=== PATIENT | female | born 1945 | race American Indian/Alaskan Native ===

== ENCOUNTER 2017-06-13 08:05 | Day surgery (SDC) | payer MEDICARE, OTHER ==
[~2017-06-13] VITALS: Ht 154.9 cm; Wt 52.2 kg
[~2017-06-13 08:05] MED LIST: ACETAMINOPHEN325 M1 PO; AMITRIPTYLINE H10 MG PO; AMITRIPTYLINE H25 MG PO; AMLODIPINE BESY10 MG PO; ASCORBIC ACID500 M3 PO; ASPIRIN EC81 MG PO; CALCIUM + D SO1 EACH PO; FERROUS SULFAT325 MG PO; HYDROCODON-ACE1 EAC3 PO; HYDROCODON-ACE1 EAC8 PO; LISINOPRIL40 MG PO; METHOCARBAMOL500 MG PO; MULTIVITAMINS1 EAC7; MULTIVITAMINS1 EAC7 PO; OXYCODONE HCL15 MG PO; POLYETHYLENE GL17 GM PO; SENNA8.6 MG PO; SIMVASTATIN10 MG; TOPROL XL100 MG PO; TRIAMTERENE-HC1 EAC1 PO
--- NOTE | 2017-06-13 10:21 | NUR ---
06/13/17 1021 Gaye Sanchez 1015-PATIENT ARRIVED TO PACU ON 3L NC O2 SAT 95% PATIENT COUGHING SUCTIONED CLEAR SPUTUM. EYES CLOSED. SR. 1021-PATIENT OPENING EYES DENIES PAIN.
--- NOTE | 2017-06-14 06:21 | OR ---
[facility] [address], [place] [address] Signed DATE OF OPERATION: 06/13/2017 SURGEON: Hayley Rm MD PREOPERATIVE DIAGNOSES: 1. Hiatal hernia. 2. Recurrent distal esophageal stricture. 3. History of esophageal dilation in 2011 and 2015. POSTOPERATIVE DIAGNOSES: 1. Moderate sized type 1 hiatal hernia (32-38 cm). 2. Distal esophageal stricture at 32 cm. PROCEDURES: EGD with CLOtest and distal esophageal dilation with 18 mm/54-[place]izen [place] balloon dilator. ESTIMATED BLOOD LOSS: Minimal. INDICATIONS: Salina is a 71-year-old female, who I have known previously. She has actually been through extensive vascular surgery at [facility]. I found her with a small hiatal hernia and a short distal esophageal stricture, which we dilated in 2011. We used our 18 mm balloon. We again dilated her in May 2015 with our 18 mm balloon. She is referred back to the office now feeling that food is getting stuck once again in her distal esophagus. Consequently, we made plans to repeat her dilation. I reviewed with Salina the nature of the hiatal hernia and the stricture. We talked about ongoing dilation versus surgical repair including dilation followed by fundoplication at the same setting. She reminded me of her extensive surgery at [facility]. She is aware of Dr. Shawn Winkler, who is an expert in foregut surgery. She thought that might be a good idea and she wanted to talk to me more about it in due time. I gave Salina a booklet on hiatal hernias and acid reflux. We reviewed the upper endoscopy in detail along with the dilation. Because of her extensive past medical history and her need for daily narcotics, we always have an anesthesia provider help us with increased monitoring sedation for Salina. In addition, she understands there is risk including but not limited to, gas bloating, crampy abdominal pain, bleeding, perforation, requiring surgery, and missed diagnosis. She expressed understanding and wished to proceed. PROCEDURE NOTE: Electronically Signed By: HAYLEY RM MD 06/14/17 0621 PATIENT NAME: SALINA MENDOZA OPERATIVE REPORT DATE OF : 47 PHYSICIAN: HAYLEY RM MD REPORT #: [id number] REPORT IS CONFIDENTIAL AND NOT TO BE RELEASED WITHOUT AUTHORIZATION [facility] [address] [place] [id number] Signed Salina was taken into our endoscopy suite and placed in the supine semi-recumbent position. She was placed under monitored anesthesia care with propofol per our nurse diversified crops supervisor. Her dentures were removed. The adult gastroscope was introduced and advanced easily down the esophagus until we reached her stricture at 32 cm. The adult gastroscope would not pass through the stricture. Consequently, we passed our balloon dilator and across the stricture and we inflated it, and held in place for a full minute. The balloon was let down, repositioned, and we inflated the stricture once again for a full minute. At that point, the fully inflated balloon could easily pass to and fro through the stricture. We then deflated our balloon and removed the balloon completely. The adult gastroscope was reintroduced and passed down the esophagus through the stricture and I could see the 3 areas of mucosa that were fractured for the dilation. We went through her hiatal hernia and we found the diaphragmatic crura at 38 cm, making a total length of her hiatal hernia 6 cm. The scope was then passed through the stomach out into the duodenum itself. The duodenum and pyloric channel were unremarkable. Her stomach appears very healthy. We went ahead and took the just a single biopsy from antrum for CLOtest. Upon retroflexion of the scope, we could easily see her hiatal hernia. Again, we measured out the diaphragmatic crura at 38 cm and then back to the top of the hiatal hernia with the stricture at 32 cm, making the total length 6 cm from the hiatal hernia. The middle and upper esophagus were unremarkable. I saw no evidence of any Mckeon's mucosa or distal esophagitis associated with the stricture. After this, the gas was suctioned out and the gastroscope removed. Salina tolerated the procedure quite well. RECOMMENDATIONS: I will see Salina back in my office in 7 to 14 days to review her results and review the pictures with her. She also wants to review possible surgical options. Hayley Rm MD ALB/MODL /[id number] cc: Kristopher David MD Electronically Signed By: HAYLEY RM MD 06/14/17 0621 PATIENT NAME: SALINA MENDOZA OPERATIVE REPORT DATE OF : 47 PHYSICIAN: HAYLEY RM MD REPORT #: [id number] REPORT IS CONFIDENTIAL AND NOT TO BE RELEASED WITHOUT AUTHORIZATION
== END 2017-06-13 18:00 | disposition home or self-care (01) ==
LOC: OPS 08:05 → DS 08:05 → OPS 09:15
PROVIDERS: Colon & Rectal Surgery
PROC: 0DB68ZX Excision of Stomach, Via Natural or Artificial Opening Endoscopic, Diagnostic (ICD-10-PCS; 2017-06-13)
PROC: 0D738ZZ Dilation of Lower Esophagus, Via Natural or Artificial Opening Endoscopic (ICD-10-PCS; principal; 2017-06-13 09:45)
DX: K22.2 Esophageal obstruction (principal); K44.9 Diaphragmatic hernia without obstruction or gangrene; I10 Essential (primary) hypertension; I73.9 Peripheral vascular disease, unspecified; K21.9 Gastro-esophageal reflux disease without esophagitis; E11.9 Type 2 diabetes mellitus without complications; D64.9 Anemia, unspecified; F41.9 Anxiety disorder, unspecified; M81.0 Age-related osteoporosis without current pathological fracture; M86.8X7 Other osteomyelitis, ankle and foot; G89.29 Other chronic pain; M25.551 Pain in right hip; I71.6 Thoracoabdominal aortic aneurysm, without rupture; Z86.19 Personal history of other infectious and parasitic diseases; Z90.89 Acquired absence of other organs; Z98.890 Other specified postprocedural states; Z86.718 Personal history of other venous thrombosis and embolism; Z90.49 Acquired absence of other specified parts of digestive tract; Z88.2 Allergy status to sulfonamides; Z79.899 Other long term (current) drug therapy
CPT/HCPCS: 86677; 99156; 99157; C1726; J2704; J7120

== ENCOUNTER 2024-07-17 05:36 | Emergency (ER) | payer MEDICARE, OTHER ==
[~2024-07-17] VITALS: Ht 157.5 cm; Wt 62.6 kg
[~2024-07-17 05:36] MED LIST changes: +CARAFATE1 GM PO; +CLARITIN10 M2 PO; +FLONASE ALLERG9.9 ML NAS; +PROTONIX40 MG PO; +REGLAN10 MG PO
[2024-07-17] MEDS ORDERED: MORPHINE SULFATE 4 MG/ML VIAL IV ONE (06:00)
[2024-07-17] MEDS ORDERED: ondansetron HCL 4 MG/2 ML VIAL IV ONE (06:00)
[2024-07-17] MEDS ORDERED: SODIUM CHLORIDE 0.9% 500 ML IV PRN (06:15)
[2024-07-17] MEDS ORDERED: SODIUM CHLORIDE 0.9% 500 ML IV ONE (06:15)
[2024-07-17 06:34] LABS: HEMATOCRIT 33.8 % (35.0-50.0); HEMOGLOBIN 10.9 g/dL (12.0-18.0); MCH 26.4 (27-36); MCHC 32.2 g/dl (30-36); MCV 81.9 fl (81-99); PLATELET COUNT 334 K/uL (140-440); RBC 4.12 M/ul (4.3-5.7); RDW 21.7 (10.5-15.0)
[2024-07-17 06:37] LABS: INR 1.15 (0.80-1.30); PROTIME 14.6 Sec (11.2-14.2)
[2024-07-17 06:42] LABS: ALBUMIN 2.8 g/dL (3.4-5.0); ALBUMIN/GLOBULIN RATIO 0.68 (1.1-2.4); ANION GAP 26.3 (7-21); BILIRUBIN, TOTAL 0.5 mg/dL (0.2-1.0); BUN/CREATININE RATIO 13.75 (6.0-28.6); CALCIUM 8.4 mg/dL (8.5-10.1); CREATININE, SERUM 2.4 mg/dL (0.55-1.02); POTASSIUM 3.3 mmol/L (3.5-5.1); PROTEIN, TOTAL 6.9 g/dL (6.4-8.2)
[2024-07-17 06:57] LABS: BANDS, MANUAL DIFF 1; LYMPHOCYTES, MANUAL DIFF 29; MONOCYTES, MANUAL DIFF 1; NEUTROPHILS, MANUAL DIFF 69
[2024-07-17] MEDS ORDERED: VOLTAREN ARTHRI20 GM TD (08:39)
[2024-07-17] MEDS ORDERED: ONDANSETRON ODT8 MG PO (08:39)
[2024-07-17] MEDS ORDERED: LIDODERM1 EACH TOP (08:39)
[2024-07-17] MEDS ORDERED: OXYCODONE HCL5 MG PO (08:39)
[2024-07-17] MEDS ORDERED: OXYCODONE HCL 5 MG TAB PO ONE (08:45)
[2024-07-17 09:20] VITALS: BP 125/56
== END 2024-07-17 09:20 | disposition home or self-care (01) ==
LOC: ED 05:36
PROVIDERS: Family Medicine
DX: R10.9 Unspecified abdominal pain (principal); W18.2XXA Fall in (into) shower or empty bathtub, initial encounter; I10 Essential (primary) hypertension; Z88.2 Allergy status to sulfonamides; Z88.0 Allergy status to penicillin; Z88.1 Allergy status to other antibiotic agents; Z88.8 Allergy status to other drugs, medicaments and biological substances; Z79.899 Other long term (current) drug therapy
CPT/HCPCS: 36415; 74176; 80053; 83690; 85025; 85610; 96374; 96375; 99284-25; A9270; J2270; J2405; J7040

== ENCOUNTER 2024-12-16 15:27 | Inpatient (IN) | payer MEDICARE, OTHER ==
[~2024-12-16] VITALS: Ht 157.5 cm; Wt 47.5 kg
[~2024-12-16 15:27] MED LIST changes: +LIDODERM1 EACH TOP; +ONDANSETRON ODT8 MG PO; +OXYCODONE HCL5 MG PO; +VOLTAREN ARTHRI20 GM TD
[2024-12-16] MEDS ORDERED: SODIUM CHLORIDE 0.9% 1,000 ML IV PRN (16:00)
[2024-12-16 16:17] LABS: BLOOD/HGB, URINE LARGE (Negative); KETONE, URINE SMALL (Negative); LEUK ESTERASE, URINE MODERATE (negative); NITRITE, URINE NEGATIVE (negative)
[2024-12-16 16:24] LABS: BACTERIA, URINE 4+ /hpf (negative); CASTS, URINE NONE SEEN \\lpf; CRYSTALS, URINE NONE SEEN (0-1+); EPITHELIAL CELLS, URINE NONE SEEN /lpf (0-1+)
[2024-12-16 16:25] LABS: REFLEX CULTURE, URINE Yes (No)
[2024-12-16 17:14] LABS: BASOPHILS 0 % (0.1-1.2); EOSINOPHILS 0.1 % (0.7-5.8); LYMPHOCYTES 3.1 % (19.3-51.7); MCH 32.4 PG (25.6-32.2); MCHC 36.4 g/dL (32.2-35.5); MCV 89.1 fL (79.4-94.8); MONOCYTES 2.6 % (4.7-12.5); NEUTROPHILS 94.0 % (34.0-71.1); RBC 3.58 M/uL (3.93-5.22)
[2024-12-16 17:29] LABS: ALT (SGPT) 20.0 U/L (14-59); AST (SGOT) 51.0 U/L (15-37); GLOMERULAR FILTRATION RATE,EST 35.0 mL/min (>60); PROTEIN, TOTAL 6.3 g/dL (6.4-8.2); UREA NITROGEN 39.0 mg/dL (7-18)
[2024-12-16] MEDS ORDERED: POTASSIUM CHLORIDE 20 MEQ/15 ML CUP PO ONE (19:15)
[2024-12-16] MEDS ORDERED: POTASSIUM CHLORIDE 10 MEQ/100 ML BAG IV SCH ×2 (19:15→23:45)
[2024-12-16] MEDS ORDERED: SODIUM CHLORIDE 0.9% 1,000 ML IV SCH (20:00)
[2024-12-16] MEDS ORDERED: ACETAMINOPHEN 325 MG TAB PO PRN (20:00)
--- NOTE | 2024-12-16 21:16 | NUR ---
RECEIVED PHONE CALL FROM RN LAURA-STEREO MAP PLOTTER OPERATOR. PER SUP, AWAITING IV ACCESS FROM MD BEFORE pt TO TRANSFER TO MS FLOOR. RECEIVING PRIMARY RN AWARE.
--- NOTE | 2024-12-16 22:25 | NUR ---
pt ARRIVED TO MS FLOOR VIA STRETCHER WITH PRIMARY RN ISAI. pt TRANSFERRED VIA TRANSFER SHEET, 3PA. RN FABIAN ALSO IN ROOM. ADMISSION COMPLETED, VSS. pt ON RA, RR EVEN AND UNLABORED. PRIMARY RN REMAINS IN ROOM TO COMPLETE pt CARES, CALL LIGHT IN REACH. PER pt, DAUGHTER MAGALY TOOK pt PURSE/BELONGINGS HOME WITH HER. pt DOES REPORT SHE HAS PARTIALS IN PLACE. BED ALARM ON FOR SAFETY. pt SO-SO HISTORIAN, UNSURE OF EXACT DATES/DETIALS WHEN ASKED REGARDING HISTORY.
--- NOTE | 2024-12-16 22:40 | NUR ---
RECEIVED CALL FROM BRIAN SANCHEZENGRAVER OPTICAL FRAMES, STATING OK TO USE NEW CENTRAL LINE PER MD.
[2024-12-16 22:55] VITALS: BP 132/67
--- NOTE | 2024-12-16 23:49 | NUR ---
ADMINISTERED IV POTASSIUM. REFRESHED WATER. REPOSITIONED WITH PILLOWS ON SIDE. NO OTHER NEEDS, CALL LIGHT IN REACH
--- NOTE | 2024-12-16 23:59 | NUR ---
PICTURES TAKEN OF SACRAL WOUND, CONSENT IN CHART. ADMINISTERED IV POTASSIUM THROUGH CENTRAL LINE. PROVIDED ICE WATER. POSITIONED TO L SIDE WITH PILLOWS. NO OTHER NEEDS, CALL LIGHT IN REACH
[2024-12-17] VITALS (9 sets, daily range): BP systolic 116–143; BP diastolic 65–75
--- NOTE | 2024-12-17 00:02 | NUR ---
STARTED IV POTASSIUM PER ORDER. POSITIONED PT ON L SIDE WITH PILLOWS. REFRESHED ICE WATER. NO OTHER NEEDS, CALL LIGHT IN REACH
--- NOTE | 2024-12-17 01:33 | NUR ---
PT RESTING IN BED, EYES CLOSED, RISE AND FALL OF CHEST OBSERVED. CALL LIGHT IN REACH
--- NOTE | 2024-12-17 02:13 | NUR ---
VITALS, REPOSITIONED PT. FINISHED IV POTASSIUM. NO OTHER NEEDS, CALL LGT IN REACH
--- NOTE | 2024-12-17 03:21 | NUR ---
PT RESTING IN BED WITH EYES CLOSED, RISE AND FALL OF CHEST OBSERVED. CALL LIGHT IN REACH, BED ALARM ACTIVE
[2024-12-17 05:03] LABS: BASOPHILS 0.2 % (0.1-1.2); EOSINOPHILS 0.3 % (0.7-5.8); LYMPHOCYTES 6.8 % (19.3-51.7); MCH 32.3 PG (25.6-32.2); MCHC 36.3 g/dL (32.2-35.5); MCV 89.1 fL (79.4-94.8); MONOCYTES 4.4 % (4.7-12.5); NEUTROPHILS 88.0 % (34.0-71.1); RBC 3.03 M/uL (3.93-5.22)
[2024-12-17 05:13] LABS: SMEAR REVIEW BLOOD SEE COMMENTS
--- NOTE | 2024-12-17 05:16 | NUR ---
VITALS, REPOSITIONED WITH PILLOWS. JASMIN AM LABS. GIVEN PRN TYLENOL FOR R ANKLE PAIN. REFRESHED ICE WATER, CALL LIGHT IN REACH, BED ALARM ACTIVE
[2024-12-17 05:18] LABS: ALT (SGPT) 19.0 U/L (14-59); AST (SGOT) 36.0 U/L (15-37); GLOMERULAR FILTRATION RATE,EST 45.0 mL/min (>60); PHOSPHORUS, INORGANIC 2.0 mg/dL (2.5-4.9); PROTEIN, TOTAL 5.3 g/dL (6.4-8.2); UREA NITROGEN 30.0 mg/dL (7-18)
--- NOTE | 2024-12-17 05:48 | NUR ---
LAB RESULTED BLOOD GLUCOSE OF 61. PERFORMED POC BLOOD GLUCOSE, RESULTED 49. GIVEN 240ML OF APPLE JUICE AND A GRANOLA BAR. PLAN TO RECHECK AT 0600.
--- NOTE | 2024-12-17 06:17 | NUR ---
SECONDARY REGULAR DIET-MINCED AND MOIST ADDED FOR pt EASE OF SWALLOWING PER PRIMARY RN REQUEST.
[2024-12-17] MEDS ORDERED: IBLOOD GLUCOSE TEST STRIP 1 EA TEST XX PRN (06:30)
[2024-12-17] MEDS ORDERED: DEXTROSE 5% 1,000 ML IV PRN (06:30)
[2024-12-17] MEDS ORDERED: GLUCAGON,HUMAN RECOMBINANT 1 MG/ML VIAL SUB-Q PRN (06:30)
[2024-12-17] MEDS ORDERED: DEXTROSE 50% 50 ML SYR IV PRN ×2 (06:30)
[2024-12-17] MEDS ORDERED: DEXTROSE 5% - NACL 0.9% 1,000 ML IV SCH (06:30)
[2024-12-17] MEDS ORDERED: MAGNESIUM SULFATE 2 GM/50 ML BAG IV SCH (07:45)
[2024-12-17] MEDS ORDERED: POTASSIUM PHOSPHATE 30 MMOL in DEXTROSE 5% 500 ML IV ONE (07:45)
[2024-12-17] MEDS ORDERED: MULTIVITAMINS THERAPEUTIC 1 EA TAB PO SCH (08:00)
[2024-12-17] MEDS ORDERED: FOLIC ACID 1 MG/0.2 ML ML IV SCH (08:00)
[2024-12-17] MEDS ORDERED: THIAMINE HCL 200 MG/2 ML VIAL IV SCH (08:00)
--- NOTE | 2024-12-17 08:14 | NUR ---
PATIENT REMAINS ON ROOM AIR, 96-98%. PATIENT DENIES OTHER NEEDS.
[2024-12-17] MEDS ORDERED: ENOXAPARIN SODIUM 40 MG/0.4 ML SYR SUB-Q SCH (09:00)
[2024-12-17] MEDS ORDERED: ENOXAPARIN SODIUM 30 MG/0.3 ML SYR SUB-Q SCH (09:00)
--- NOTE | 2024-12-17 09:05 | NUR ---
PATIENT WAS GOING TO A X-RAY AND COLORER ASSISTED IN CLEANING PATIENT UP AND TO HER CHAIR. I STRIPPED HER BEDDING, CHANGED THE SHEETS, CLEANED HER ROOM, THEN WHEN THE PATIENT GOT BACK I ASSISTED HER BACK TO BED. ATE BREAKFAST WHILE I SET UP EVERYTHING FOR A BED BATH, GOT PATIENT CLEANED UP AND A NEW GOWN PUT ON. STOCKED THINGS IN THE CLOSET AND PUT DIRTY LINENS IN THE BIN. CALL LIGHT WITH IN REACH AND NOTHING ELSE NEEDED AT THIS TIME.
[2024-12-17] MEDS ORDERED: SODIUM CHLORIDE 0.9% 1,000 ML IV SCH (10:00)
--- NOTE | 2024-12-17 10:04 | NUR ---
PT NOT AVAILABLE FOR VISIT. PROVIDED PRAYER.
--- NOTE | 2024-12-17 10:45 | NUR ---
PT CURRENTLY WORKING WITH PHYSICAL THERAPY AT THIS TIME, PT IS STANDING AND AMBULATING FROM BED TO CHAIR 1PA W FWW. PT TOLERATING WELL AND HAS CHAIR ALARM ON FOR PT SAFETY AND CALL LIGHT IN REACH AT THIS TIME IF NEEDED.
--- NOTE | 2024-12-17 10:54 | NUR ---
UR CLINICAL REVIEW: 2 MN FOR VERSALUS-PER FORENSIC BALLISTICS EXPERT MEETS INPT CRITERIA FOR UTI WITH ALOC AND HYPOKALEMIA MEDICARE INPT 12/16/24 @ 195 ORDER MATCHES REG NO AUTH REQUIRED PER MEDICARE GUIDELINES DISCHARGE TO HOME IN 1-2 DAYS PENDING FUTHER EVAL
--- NOTE | 2024-12-17 11:05 | NUR ---
ALERT IN RECLINER. ANSWERS QUESTIONS APPROPRIATELY BUT DOES HAVE DIFFICULTY WITH SOME MEMORY NOTED. LIVES ALONE IN AN APARTMENT. HAS WALKER, CANE. UNSURE IF SHE HAS OTHER MEDICAL EQUIPMENT. PATIENT DOES NOT DRIVE. FAMILY PROVIDES TRANSPORTATION FOR HER. STATES SHE HAS NO FINANCIAL HARDSHIP. DISCUSSED THAT PT IS RECOMMENDING SNF. STATES SHE WOULD PREFER TO STAY IN [place], IS AGREEABLET TO SNF AT THIS TIME. REQUESTS CASE MANAGEMENT CALL AND UPDATE HER DAUGHTER, MAGALY.
--- NOTE | 2024-12-17 11:57 | NUR ---
CALLED AND SPOKE WITH MAGALY. STATES PATIENT HAS PREVIOUSLY BEEN TO [facility] AND SHE IS SURPRISED PATIENT IS IN AGREEANCE TO RETURN. MAGALY REQUESTS REFERRAL BE SENT TO [facility] SHE IS PLANNING ON HELPING PATIENT WITH PLACEMENT IN FACILITY AFTER SNF. PREFERRABLY DESIRE TO HEAL IF POSSIBLE. STATES SHE THINKS PATIENT WILL HAVE ASSISTANCE WITH PLACEMENT FEES THROUGH [employer] AND STATES MORNING NANNY THERE IS DICK CAMPOS. ALSO STATES SHE THINKS PATIENT HAS ASSISTED MEDICAID.
[2024-12-17] MEDS ORDERED: PHARMACY RENAL DOSE ADJUSTMENT 1 DOSE MISC PO SCH (12:00)
--- NOTE | 2024-12-17 12:08 | NUR ---
CALLED AND SPOKE WITH NESTOR ALVARADO AT [facility]. PATIENT DOES NOT HAVE IMMIGRATION OFFICER MEDICAID. HER SON WENT IN TO OFFICE LAST WEEK TO INQUIRE ABOUT PRISON MEDICAID, HOWEVER PATIENT WASN'T PRESENT SO THEY WERE NOT ABLE TO INITIATE APPLICATION PROCESS.
--- NOTE | 2024-12-17 12:11 | NUR ---
PT SITTING UP IN CHAIR AT THIS TIME WITH CHAIR ALARM IN PLACE FOR PT SAFETY AT THIS TIME. PT HAS NO CURRENT CONCERNS AND HAS CALL LIGHT IN REACH.
--- NOTE | 2024-12-17 13:27 | NUR ---
PATIENT IS IN HER CHAIR AT THIS TIME, SENIOR SOLUTIONS CONSULTANT CHARTED VITALS AND I&O'S, CLEANED UP HER ROOM AND MADE HER BED. PATIENT HAS NOT VOIDED SINCE THIS MORNING, YAMEL CARRERA NOTIFIED. CALL LIGHT WITH IN REACH AND NOTHING ELSE NEEDED AT THIS TIME.
--- NOTE | 2024-12-17 13:40 | NUR ---
REPORT RECIEVED FROM YAMEL CARRERA. PATIENT SITTING UP IN HER CHAIR WITHOUT FURTHER NEEDS AT THIS TIME. CALL LIGHT AND PERSONAL BELONGINGS ARE WITHIN REACH.
--- NOTE | 2024-12-17 13:53 | NUR ---
REFERRAL SENT TO [facility] FOR [facility]F.
--- NOTE | 2024-12-17 13:57 | NUR ---
PATIENT CBG PER DR NEWMAN AND WAS 273. VERBAL ORDER FROM MD TO RECHECK PATIENT CBG IN 1 HOUR.
--- NOTE | 2024-12-17 15:10 | NUR ---
PATIENT CBG CHECKED AND WAS 246. DR NEWMAN NOTIFIED. MD WITH VERBAL ORDER TO RECHECK PATIENT'S CBG "AROUND DINNER TIME".
--- NOTE | 2024-12-17 15:51 | NUR ---
PATIENT WAS IN HER CHAIR AND YAMEL SOMMERS ASSISTED HER BACK TO BED, I CAME IN AND WAS ASSISTING IN CHANGING THE PATIENT, PATIENTS BOTTOM AND VAGINAL AREA WAS VERY RED, BLOODY AND IRRITATED. WE CLEANED HER UP AND YAMEL MCGREGOR CAME IN AND ASSISTED IN PUTTING CAVILON ON PATIENT TO HELP. CHANGED HER BREIF AND CHUCKS, WARM BLANKET AND FRESH ICE WATER. CALL LIGHT WITH IN REACH AND NOTHING ELSE NEEDED AT THIS TIME.
--- NOTE | 2024-12-17 15:57 | NUR ---
PATIENT CBG PER DR NEWMAN AND WAS 273. VERBAL ORDER FROM MD TO RECHECK PATIENT CBG IN 1 HOUR.
--- NOTE | 2024-12-17 15:58 | NUR ---
PATIENT RESTING IN BED, GUMARO AREA CLEANED WITH WIPES AND CAVILON BARRIER FILM APPLIED TO PATIENTS BUTTOCKS AND LABIA FOLDS. PATIENT TOLERATED OKAY, BUT REPORTED IT BEING PAINFUL. PATIENT GIVEN PRN TYLENOL FOR 8/10 PAIN IN "MY FEET AND BUTT". PATIENT WITHOUT FURTHER NEEDS AT THIS TIME. CALL LIGHT AND PERSONAL BELONGINGS ARE WITHIN REACH.
--- NOTE | 2024-12-17 16:30 | NUR ---
PATIENT RESTING IN BED WITH HER EYES CLOSED. EVEN AND UNLABORED RESPIRATIONS NOTED. CALL LIGHT AND PERSONAL BELONGINGS ARE WITHIN REACH.
--- NOTE | 2024-12-17 17:16 | NUR ---
PATIENT'S CBG CHECKED AND WAS 220. DR NEWMAN NOTIFIED. MD WITH NO FURTHER ORDERS AT THIS TIME. PATIENT SITTING UP IN BED WITHOUT ANY NEEDS. CALL LIGHT AND PERSONAL BELONGINGS ARE WITHIN REACH.
--- NOTE | 2024-12-17 17:45 | NUR ---
PATIENT RESTING IN BED, DENIES ANY PAIN AT THIS TIME. PATIENT WITHOUT ANY NEEDS. CALL LIGHT AND PERSONAL BELONGINGS ARE WITHIN REACH.
--- NOTE | 2024-12-17 17:59 | NUR ---
PATIENT IS IN HER BED AT THIS TIME, FOOT GATHERER CHARTED VITALS AND I&O'S, THE MONITOR WILL NOT AIRPLANE GAS TANK LINER ASSEMBLER HER O2, ON THE WALL MONISTOR OR THE SMALL PORTABLE PULSE OX. I CALLED DOWN TO RT AND ASKED FOR AN EAR OR NOSE CLIP PULSE OX, BUT IT IS STILL NOT HERE YET. CALL LIGHT WITH IN REACH AND NOTHING ELSE NEEDED AT THIS TIME.
--- NOTE | 2024-12-17 20:30 | NUR ---
PERFUME AND TOILET WATER MAKER OBTAINED VITALS. NO NEW I&O AT THIS TIME. PT STATES NO NEEDS AND CALL LIGHT WITHIN REACH.
--- NOTE | 2024-12-17 20:55 | NUR ---
PATIENT IN BED, EYES OPEN, CHEST RISE EQUAL AND UNLABORED. PATIENT DENIES CONCERNS AT THIS TIME. CALL LIGHT AND PERSONAL BELONGINGS IN REACH.
--- NOTE | 2024-12-17 21:50 | NUR ---
PATIENT LAYING IN BED, EYES OPEN, CHEST RISE EQUAL AND UNALBORED. SCHEDULED MESIDATIONS AND ASSESSMENT COMPLETE. GUMARO CARE COMPLETED AND FEMAL PUREWICK PLACED, PATIENT TOLERATED WELL. PATIENT DENIES CONCERNS AT THIS TIME. BED ALARM ON, PERSONAL BELONGINGS IN REACH AND CALL LIGHT IN REACH
--- NOTE | 2024-12-17 22:33 | NUR ---
PATIENT IN BED, EYES CLOSED, CHEST RISE EQUAL AND UNLABORED. IV FLUID INFUSING WITHOUT DIFFICULTY. NO APPARENT NEEDS NOTED AT THIS TIME. CALL LIGHT AND PERSONAL BELONGINGS IN REACH.
[2024-12-18] VITALS (10 sets, daily range): BP systolic 123–135; BP diastolic 64–79
--- NOTE | 2024-12-18 00:21 | NUR ---
PATIENT IN BED, EYES CLOSED, CHEST RISE EQUAL AND UNLABORED. IV FLUID INFUSING WITHOUT DIFFICULTY. CALL LIGHT AND PERSONAL BELONGINGS IN REACH. NO APPARENT NEEDS NOTED AT THIS TIME.
--- NOTE | 2024-12-18 01:35 | NUR ---
PATIENT IN BED, EYES OPEN, CHEST RISE EQUAL AND UNLABORED. VITAL SIGNS AND ASSESSMENT COMPLETED. PATIENT WITH URINE AND BM INCONTENIENCE IN BREIF. BLADDER SCAN COMPLETED WITH RESIDUAL URINE IN THE BLADDER OF 259 ML. PER MD, PRN ORDER FOR STRAIGHT CATH FOR >300 ML RESIDUAL IN BLADDER. PATIENT CLEANED AND CHANGED. PATIENT DENIES CONCERNS AT THIS TIME. CALL LIGHT AND PERSONAL BELONGINGS IN REACH. IV FLUIDS INFUSING WITHOUT DIFFICULTY.
--- NOTE | 2024-12-18 02:37 | NUR ---
PATIENT IN BED, EYES CLOSED, CHEST RISE EQUAL AND UNLABORED. IV FLUIDS INFUSING WITHOUT DIFFICULTY. NO APPARENT NEEDS NOTED AT THIS TIME. CALL LIGHT AND PERSONAL BELONGINGS IN REACH.
--- NOTE | 2024-12-18 04:02 | NUR ---
PATIENT IN BED, EYES CLOSED, CHEST RISE EQUAL AND UNLABORED. IV FLUIDS INFUSING WITHOUT DIFFICULTY. PERSONAL BELONGINGS AND CALL LIGHT IN REACH. NO APPARENT NEEDS NOTED AT THIS TIME.
[2024-12-18 05:28] LABS: BASOPHILS 0.2 % (0.1-1.2); EOSINOPHILS 0.7 % (0.7-5.8); LYMPHOCYTES 11.6 % (19.3-51.7); MCH 32.1 PG (25.6-32.2); MCHC 35.6 g/dL (32.2-35.5); MCV 90.3 fL (79.4-94.8); MONOCYTES 5.9 % (4.7-12.5); NEUTROPHILS 81.4 % (34.0-71.1); RBC 2.77 M/uL (3.93-5.22)
[2024-12-18 05:44] LABS: SMEAR REVIEW BLOOD SEE COMMENTS
[2024-12-18 05:46] LABS: ALT (SGPT) 15.0 U/L (14-59); AST (SGOT) 23.0 U/L (15-37); GLOMERULAR FILTRATION RATE,EST 58.0 mL/min (>60); PROTEIN, TOTAL 4.7 g/dL (6.4-8.2); UREA NITROGEN 25.0 mg/dL (7-18)
--- NOTE | 2024-12-18 06:12 | NUR ---
PATIENT IN BED, EYES OPEN, CHEST RISE EQUAL AND UNLABORED. VITALS SIGNS COMPLETE, IV FLUID INFUSING WITHOUT DIFFICULTY. PATIENT DENIES CONCERNS AT THIS TIME. PERSONAL ITEMS AND CALL LIGHT WITHIN REACH.
--- NOTE | 2024-12-18 07:30 | NUR ---
PATIENT RESTING IN BED AND DENIES ANY NEEDS AT THIS TIME. CALL LIGHT AND PERSONAL BELONGINGS ARE WITHIN REACH.
[2024-12-18] MEDS ORDERED: THIAMINE HCL 100 MG TAB PO SCH (08:00)
[2024-12-18] MEDS ORDERED: FOLIC ACID 1 MG TAB PO SCH (08:00)
[2024-12-18 08:16] LABS: PHOSPHORUS, INORGANIC 2.9 mg/dL (2.5-4.9)
--- NOTE | 2024-12-18 08:25 | NUR ---
NOTIFIED BY AMISHA AT [facility] THEY CAN ACCEPT PATIENT FOR ADMISSION TOMORROW IF SHE IS MEDICALLY READY. DR. NEWMAN NOTIFIED. UNSURE IF PATIENT WILL BE READY TOMORROW. HE WILL SEE HER AND UPDATE.
--- NOTE | 2024-12-18 08:25 | NUR ---
PATIENT MEDICATED PER EMAR. PATIENT SITTING UP IN BED EATING BREAKFAST. MEDS CRUSHED IN APPLESAUCE, PATIENT TOLERATED WELL. PRN DOSE OF TYLENOL GIVEN FOR 8/10 PAIN IN HER RIGHT FOOT. NEW BAG OF FLUID SCANNED IN AND INFUSING. PATIENT WITHOUT FURTHER NEEDS AT THIS TIME. CALL LIGHT AND PERSONAL BELONGINGS ARE WITHIN REACH.
--- NOTE | 2024-12-18 08:36 | NUR ---
PATIENT IN BED AT THIS TIME. OPTIONS ADVISOR OFFERED PATIENT TO GET INTO CHAIR AFTER BREAKFAST. PATIENT AGREED. CALL LIGHT WITHIN REACH, NO FURTHER NEEDS AT THIS TIME.
[2024-12-18] MEDS ORDERED: Calcium Gluconate in NS 1,000 MG/50 ML BAG IV ONE (09:00)
[2024-12-18] MEDS ORDERED: ENOXAPARIN SODIUM 40 MG/0.4 ML SYR SUB-Q SCH (09:00)
[2024-12-18] MEDS ORDERED: POTASSIUM CHLORIDE 40 MEQ,LIDOCAINE HCL 1% 40 MG in DEXTROSE 5% 250 ML IV ONE (09:00)
--- NOTE | 2024-12-18 09:27 | NUR ---
PATIENT MEDICATED PER EMAR. PATIENT REPORTING 8/10 PAIN IN HER RIGHT FOOT AFTER PRN TYLENOL GIVEN [address] NEWMAN NOTIFIED. STATES HE WILL ADD NEW ORDER.
[2024-12-18] MEDS ORDERED: KETOROLAC TROMETHAMINE 15 MG/ML VIAL IV PRN (09:45)
--- NOTE | 2024-12-18 10:00 | NUR ---
PATIENT IN CHAIR AT THIS TIME. MATERIAL LISTER CHARTED VITALS AND I&O'S. STEFANIA CAMCAHO AND STEFANIA THOMPSON DID CHG [place] AND CHANGED LINENS AND GONW. CALL LIGHT WITHIN REACH, NO FURTHER NEEDS AT THIS TIME.
--- NOTE | 2024-12-18 10:37 | NUR ---
PATIENT MEDICATED PER EMAR FOR HER 8/10 RIGHT FOOT PAIN. PATIENT REQUESTING SOME CHOCOLATE PUDDING AND A SPOON. DELEGATED TO NETWORK SECURITY OFFICER. PATIENT WITHOUT FURTHER NEEDS AT THIS TIME. IV FLUIDS INFUSING PER ORDER. PATIENT SITTING UP IN HER CHAIR WATCHING TV. PATIENT WITHOUT FURTHER NEEDS AT THIS TIME. CALL LIGHT AND PERSONAL BELONGINGS ARE WITHIN REACH.
--- NOTE | 2024-12-18 10:53 | NUR ---
PATIENT UPDATED THAT SHE HAS BEEN ACCEPTED TO [facility]. SHE IS AGREEABLE TO GO DISCUSSED CRM TECHNICAL LEAD MEDICAID. INFORMED HER SHE WILL HAVE TO TALK ON THE PHONE TO APPLY. VERBALIZES UNDERSTANDING. DAUGHTER, MAGALY CALLED AND MESSAGE LEFT.
--- NOTE | 2024-12-18 11:06 | NUR ---
PATIENT SITTING UP IN HER CHAIR WITH HER EYES CLOSED. EVEN AND UNLABORED RESPIRATIONS NOTED. CALL LIGHT AND PERSONAL BELONGINGS ARE WITHIN REACH
--- NOTE | 2024-12-18 11:14 | NUR ---
PT NOT AVAIABLE FOR VISIT. PROVIDED PRAYER.
--- NOTE | 2024-12-18 12:01 | NUR ---
PATIENT OFF THE FLOOR FOR PROCEDURE AT THIS TIME.
--- NOTE | 2024-12-18 12:10 | NUR ---
PATIENT'S DAUGHTER HERE FOR A VISIT. LANE WITH PHARMACY IN ROOM REVIEWING MEDS WITH PATIENT AND HER DAUGHTER.
--- NOTE | 2024-12-18 12:13 | NUR ---
MED REC COMPLETE
--- NOTE | 2024-12-18 13:17 | NUR ---
DISCHARGE REVIEW: CONTINUED NEED FOR IV ANTIBIOTICS, CIWA PROTOCOL, IV FLUIDS, TREND LABS, PT/OT/ST EVAL, WOUND NURSE CONSULT PENDING, URINE CULTURE PENDING. PLAN TO DISCHARGE TO [facility] ADD: 12/22/24
--- NOTE | 2024-12-18 13:26 | NUR ---
SORTER UPHOLSTERY PARTS'S IN ROOM PERFORMING CARES AND WITHOUT NEEDS.
--- NOTE | 2024-12-18 13:35 | NUR ---
PATIENT IN CHAIR AT THIS TIME. FUR MIXER CHARTED VITALS AND I&O'S. STEFANIA CAMACHO AND STEFANIA THOMPSON CHANGED PATIENTS BRIEF AND PLACED NEW PUREWCIK. CALL LIGHT WITHIN REACH, NO FURTHER NEEDS AT THIS TIME.
--- NOTE | 2024-12-18 14:08 | NUR ---
PATIENTS DAUGHTER AT BEDSIDE. YAMEL BOLAÑOS PROVIDED WARM BLANKET.
--- NOTE | 2024-12-18 14:51 | NUR ---
PHOTO COLORER AND OT IN ROOM WORKING WITH PATIENT AND WITHOUT ANY NEEDS AT THIS TIME. CALL LIGHT WITHIN REACH.
--- NOTE | 2024-12-18 15:58 | NUR ---
PATIENT SITTING UP IN HER CHAIR WITH HER EYES CLOSED. EVEN AND UNLABORED RESPIRATIONS NOTED. CALL LIGHT AND PERSONAL BELONGINGS ARE WITHIN REACH.
--- NOTE | 2024-12-18 16:30 | NUR ---
IN ROOM WITH WOUND CARE NURSE FOR WOUND CONSULT.
--- NOTE | 2024-12-18 16:37 | NUR ---
PATIENT IN BED AT THIS TIME. THIS BALLISTICS TESTER MOVED PATIENT FROM CHAIR TO BED. CALL LIGHT WITHIN REACH, NO FURTHER NEEDS AT THIS TIME.
--- NOTE | 2024-12-18 17:15 | NUR ---
WOUND CARE COMPLETED. PATIENT BUTTOCKS ON LABIA FOLD CLEANSED WITH WARM WASH CLOTH, CAVILON BARRIER APPLIED AND LET DRY, THEN APPLIED BARRIER PASTE PER WOUND CARE NURSE. FRESH CHUX, BRIEF, AND PUREWICK APPLIED. PATIENT RESTING IN BED AND DENIES PAIN "NOW THAT YOU'RE DONE CLEANING I DON'T HAVE ANY PAIN, JUST WHEN YOU'RE CLEANING DOWN THERE". PATIENT WITHOUT FURTHER NEEDS AT THIS TIME. CALL LIGHT AND PERSONAL BELONGINGS ARE WITHIN REACH.
--- NOTE | 2024-12-18 17:25 | NUR ---
JEANINE 1627: THIS WOUND RN IN THE ROOM WITH YAMEL MCGREGOR FOR A WOUND CONSULT OF THE THE SACRUM AREA. THE PT REPORTS THAT SHE HAS NO PAIN AT THIS TIME. SHE WAS ADMITTED FOR HER BUTTOCK BEING PAINFUL. SHE DENIES BEING INCONTINENT OF BOWEL AND BLADDER. SHE STATES THAT SHE SITS A LOT DURING THE DURING, SITTING AND SLEEPING ON THE SAME COUCH. SHE REPORTS HAVING TRIED OTC CREAMS AT HOME, STATING IT DID HELP AT FIRST, BUT SHE HAS HAD THIS PAIN/ISSUE FOR A WEEK OR MORE. WARM WET WASH CLOTHS ARE USED TO GENTLY CLEANSE THE SACRUM, BUTTOCK, AND PART OF THE PERIAREA. THERE IS "GUNKED UP" BARRIER CREAM PASTE. YAMEL MCGREGOR REPORTS THEY ORIGINALLY PUT CAVILLON ADVANCED ON THE AREA, BUT THEN EVERYTHING WAS STICKING TO HER SKIN; THEY SWITCHED TO THE BARRIER PASTE, BUT THAT APPEARED TO PULL MORE SKIN OFF, SO THEY HAVE BEEN PUTTING THE ZINC OINTMENT ON HER SKIN. THE SACRUM IS A STAGE II PRESSURE INJURY - AT FIRST GLANCE IT LOOKED TO BE CHARACTERISITC OF A SHEARING WOUND, BUT AFTER FULL CLEANING THE AREA IT IS DEFINITELY A STAGE II PRESSURE INJURY. THE BUTTOCK AND PERIAREA IS 100% INCONTINENCE ASSOCIATED SKIN DAMAGE. WHILE CLEANING THE PT'S BUTTOCK AND PERIAREA THERE IS NOTED FECES STILL ON HER BUTTOCK AND ON THE PUREWICK. IT IS RECOMMENDED THAT THE PUREWICK BE CHANGED. ALL AREAS ARE PHOTOGRAPHED - THE SCARUM IS MEASURED - SEE WOUND COMPLEX ASSESSMENT FOR DETAILS. CAVILLON ADVANCED SKIN PREP IS APPLIED TO THE SACRUM AND ALL AREAS OF SKIN BREAKDOWN. ONCE THE CAVILLON ADVANCED WAS DRY, A LIBERAL LAYER OF BARRIER ZINC PASTE IS APPLIED. BALBIR MONTESINOS, IS EDUCATED THAT WHEN SHE DOES HAVE AN INCONTINENT EPISOPE NOT TO WORRY ABOUT CLEANING ALL OF THE PASTE OFF, ONLY WORRY ABOUT CLEANING THE SOILD PASTE OFF, THEN REPLACING WHATEVER WAS REMOVED. IT IS RECOMMENDED THAT SHE HAVE A TURNING SCHEDULED IMPLEMENTED - 2 HRS ON ONE SIDE, 2HRS ON BACK, 2 HRS ON THE OTHER SIDE - THIS CAN ALSO BE FOLLOWED WHILE SHE IS SITTING IN A CHAIR. THE INCONTINENCE ASSOCIATED SKIN DAMAGE CAN LEAD TO FURTHER/MORE PRESSURE INJURIES WITHOUT PRESSURE RELIEF AND BLOOD FLOW. THE PUREWICK CAN ALSO LEAD TO PRESSURE INJURIES WITH THE SKIN BREAKDOWN THAT IS PRESENT. JEANINE 1647: WOUND CONSULT IS COMPLETE.
--- NOTE | 2024-12-18 18:15 | NUR ---
PATIENT RESTING IN BED WATCHING TV. PATIENT WITHOUT ANY NEEDS AT THIS TIME. CALL LIGHT AND PERSONAL BELONGINGS ARE WITHIN REACH.
--- NOTE | 2024-12-18 18:36 | NUR ---
PATIENT IN BED AT THIS TIME. STEFANIA CAMACHO AND STEFANIA THOMPSON CHARTED VITALS AND I&O'S. PATIENT STATED THAT SHE DID NOT WANT A BED ABTH TONIGHT, BUT WANTS ONE TOMORROW. CALL LIGHT WITHIN REACH, NO FURTHER NEEDS.
--- NOTE | 2024-12-18 19:53 | NUR ---
REPORT RECEIVED FROM YAMEL MCGREGOR. PATIENT IN BED, EYES CLOSED, CHEST RISE EQUAL AND UNLABORED. NO APPARENT CONCERNS AT THIS TIME. CALL LIGHT AND PERSONAL ITEMS IN REACH.
--- NOTE | 2024-12-18 22:00 | NUR ---
PATIENT IN BED, EYES OPEN, CHEST RISE EQUAL AND UNLABORED. SCDS IN PLACE. PUREWICK CHANGED AND PERICARE COMPLETED. CHLORHEXADINE WIPE DOWN COMPLETED, PATIENT TOLERATED WELL. PULSATILE FLUSHED IJ LUMENS WITH NORMAL SALINE. IV FLUID INFUSING WITHOUT DIFFICULTY. FLOATED PATIENTS HIPS WITH PILLOWS. ASSESSMENT AND VITAL SIGNS COMPLETED. PATIENT DENIES CONCERNS AT THIS TIME. PERSONAL BELONGINGS AND CALL LIGHT WITHIN REACH.
--- NOTE | 2024-12-19 00:16 | NUR ---
PATIENT IN BED, EYES CLOSED, CHEST RISE EQUAL AND UNLABORED. SCDS IN PLACE, IV FLUID INFUSING WITHOUT DIFFICULTY. PERSONAL BELONGINGS AND CALL LIGHT IN REACH. HIPS STILL FLOATED WITH PILLOWS. NO APPARENT NEEDS NOTED AT THIS TIME.
--- NOTE | 2024-12-19 01:50 | NUR ---
PATIENT IN BED, EYES CLOSED, CHEST RISE EQUAL AND UNLABORED. IV FLUID INFUSING WITHOUT DIFFICULTY. SCDS IN PLACE, PATIENT REPOSITIONED. PERSONAL BELONGINGS AND CALL LIGHT IN REACH. NO APPARENT NEEDS NOTED AT THIS TIME.
--- NOTE | 2024-12-19 03:30 | NUR ---
PATIENT IN BED, EYES CLOSED, CHEST RISE EQUAL AND UNLABORED. SCDS IN PLACE, IV FLUID RUNNING WITHOUT DIFFICULTY. CALL LIGHT AND PERSONAL BELONGINGS IN REACH. NO APPARENT NEEDS NOTED AT THIS TIME.
[2024-12-19 04:37] VITALS: BP 145/77
[2024-12-19 04:52] LABS: BASOPHILS 0.2 % (0.1-1.2); EOSINOPHILS 1.9 % (0.7-5.8); LYMPHOCYTES 17.0 % (19.3-51.7); MCH 32.3 PG (25.6-32.2); MCHC 35.4 g/dL (32.2-35.5); MCV 91.4 fL (79.4-94.8); MONOCYTES 7.5 % (4.7-12.5); NEUTROPHILS 73.2 % (34.0-71.1); RBC 2.69 M/uL (3.93-5.22)
[2024-12-19 04:54] VITALS: BP 145/77
--- NOTE | 2024-12-19 04:54 | NUR ---
PATIENT IN BED, EYES OPEN, CHEST RISE EQUAL AND UNLABORED. SCDS IN PLACE. PUREWICK CHANGED AND GUMARO CARE COMPLETED. BLADDER SCAN COMPLETED, 315 ML. LUMENS OF IJ FLUSHED WITH PULSATILE FLUSH, ORDERED LABS DRAWN BY THIS RN. PERSONAL ITEMS AND CALL LIGHT IN REACH, PATIENT DENIES CONCERNS AT THIS TIME. PATIENT REPOSITIONED IN BED.
[2024-12-19 05:05] LABS: SMEAR REVIEW BLOOD SEE COMMENTS
[2024-12-19 05:07] LABS: ALT (SGPT) 22.0 U/L (14-59); AST (SGOT) 41.0 U/L (15-37); GLOMERULAR FILTRATION RATE,EST 59.0 mL/min (>60); PROTEIN, TOTAL 4.6 g/dL (6.4-8.2); UREA NITROGEN 20.0 mg/dL (7-18)
--- NOTE | 2024-12-19 05:39 | NUR ---
PATIENT CALL LIGHT ANSWERED. PATIENT REQUESTING TO USE COMMODE. PATIENT ASSISTED TO COMMODE AND BACK TO BED. URINE AND BM RECORDED. BREIF CHANGED, GUMARO CARE COMPLETED, PUREWICK DISCONTINUED. PATIENT DENIES CONCERNS AT THIS TIME. VITAL SIGNS COMPLETED. SCDS IN PLACE. CALL LIGHT AND PERSONAL BELONGINGS IN REACH.
--- NOTE | 2024-12-19 06:58 | NUR ---
In with pt for introductions and to update white board. Initially, pt was resting with eyes closed, supine in bed, breathing regular, even, and non-labored. Side rails up, call light in reach. When I turned around after updating the white board, pt's eyes were open. Introductions were made. Pt report received from YAMEL Wheatley and YAMEL Boyd.
[2024-12-19] MEDS ORDERED: IBUPROFEN 600 MG TAB PO PRN (08:15)
--- NOTE | 2024-12-19 09:00 | NUR ---
[facility] IF PATIENT IS READY. DR. NEWMAN NOTIFIED.
--- NOTE | 2024-12-19 09:14 | NUR ---
CALLED AND SPOKE WITH MAGALY AND NOTIFIED HER PATIENT HAS BEEN ACCEPTED TO [facility] FOR [facility]. IF READY, PATIENT COULD DISCHARGE TODAY. STATES SHE WOULD PREFER [facility] FOR TRANSPORT. PATIENT IS UNABLE TO AFFORD COST OF TRANSPORT, HOWEVER. WILL CALL TO UPDATE MAGALY IF PATIENT DOES DC. CALLED [facility] TO SCHEDULE TRANSPORT FOR THIS AFTERNOON. THEY ARE GOING TO SET UP TRANSPORT THEN CALL BACK.
--- NOTE | 2024-12-19 09:17 | NUR ---
In with pt for hourly rounding. Pt has not finished swallowing all of her pills, stating "I don't know what they are for" despite my having reviewed the medications and what she is taking them for. Reviewed the medications and why they are important, again, and assisted the pt with taking them by offering them in applesauce, which she accepted. Pt was able to tolerate swallowing all of the medications with applesauce better than she did with water. Hot pack provided, towel placed over it, and placed it on the back of pt's neck as she c/o being cold. Physical therapy in with pt to work with her.
--- NOTE | 2024-12-19 09:35 | NUR ---
SPOKE WITH PATIENT REGARDING POTENTIAL DC TODAY TO [facility]. [facility] ABLE TO TRANSPORT PATIENT AT 1300.
[2024-12-19 09:52] VITALS: BP 138/65
--- NOTE | 2024-12-19 09:54 | NUR ---
PATIENT IN CHAIR AT THIS TIME. THIS SHIM PLUG CUTTER AND SHIM PLUG CUTTERMirian THOMPSON CHARTED VITALS AND I&O'S. BOTH CNAS CHECKED PATIENTS BRIEF, PATIENTS BRIEF IS DRY. STEFANIA THOMPSON CHANGED PATIENTS LINENS. CALL LIGHT WITHIN REACH, NO FURTHER NEEDS AT THIS TIME.
[2024-12-19 10:46] VITALS: BP 138/65
[2024-12-19 12:13] VITALS: BP 146/72
[2024-12-19] MEDS ORDERED: THERA TABLET400 MCG PO (12:27)
[2024-12-19] MEDS ORDERED: CEFDINIR300 MG PO (12:27)
[2024-12-19] MEDS ORDERED: VITAMIN B-1100 MG PO (12:28)
--- NOTE | 2024-12-19 12:34 | NUR ---
PATIENT WAS IN HER CHAIR AT THIS TIME, PUBLIC WORKS COMMISSIONER CHARTED VITALS AND I&O'S, GOT PATIENT READY TO GO, CLEANED ROOM AND READY TO GO.
[2024-12-19 13:40] VITALS: BP 146/72
== END 2024-12-19 13:17 | DRG 690 ==
LOC: ED 15:27 → MS 20:33
PROVIDERS: Emergency Medicine; ADMIT Family Medicine; ATTEND Family Medicine
PROC: 02HV33Z Insertion of Infusion Device into Superior Vena Cava, Percutaneous Approach (ICD-10-PCS; principal; 2024-12-16)
PROC: 3E03329 Introduction of Other Anti-infective into Peripheral Vein, Percutaneous Approach (ICD-10-PCS; principal; 2024-12-16)
DX: N39.0 Urinary tract infection, site not specified (principal); S22.42XA Multiple fractures of ribs, left side, initial encounter for closed fracture; E87.1 Hypo-osmolality and hyponatremia; N17.9 Acute kidney failure, unspecified; I10 Essential (primary) hypertension; L89.159 Pressure ulcer of sacral region, unspecified stage; G89.29 Other chronic pain; E78.00 Pure hypercholesterolemia, unspecified; E87.6 Hypokalemia; Z60.2 Problems related to living alone; E83.42 Hypomagnesemia; E83.39 Other disorders of phosphorus metabolism; E16.2 Hypoglycemia, unspecified; M85.871 Other specified disorders of bone density and structure, right ankle and foot; R13.10 Dysphagia, unspecified; B96.20 Unspecified Escherichia coli [E. coli] as the cause of diseases classified elsewhere; Z88.1 Allergy status to other antibiotic agents; Z88.2 Allergy status to sulfonamides; Z88.8 Allergy status to other drugs, medicaments and biological substances; Z79.51 Long term (current) use of inhaled steroids; Z79.899 Other long term (current) drug therapy; Z79.891 Long term (current) use of opiate analgesic; W18.30XA Fall on same level, unspecified, initial encounter
CPT/HCPCS: 36415; 36556; 36592; 51798; 70450; 71045; 71046; 73610; 80053; 81001; 83605; 83735; 84100; 85025; 85060; 87040; 87077; 87088; 87186; 92507; 92523; 97161; 97166; 97530; 99285-25; A9270; C1751; G0480; J0696; J1650; J1885; J3411; J3475; J3480; J3490; J7030; J7042; J7060

== ENCOUNTER 2025-04-23 09:30 | Emergency (ER) | payer MEDICARE, OTHER ==
[~2025-04-23] VITALS: Ht 157.5 cm; Wt 51.0 kg
[~2025-04-23 09:30] MED LIST changes: +CEFDINIR300 MG PO; +THERA TABLET400 MCG PO; +VITAMIN B-1100 MG PO
--- OUTSIDE RECORDS SUMMARY | 2025-04-23 09:31 | XMS ---
PreManage Notification: BG MENDOZA Security [employer] Events No recent Security Events currently on file CRITERIA MET - [facility] - 2 Visits in 30 Days CARE PROVIDERS MARIA D PINEDA [facility] 12/17/2024-Current PHONE: Unknown WIL HERNANDEZ Internal Medicine Current PHONE: Unknown Eva has no Care Guidelines for this patient. Jarret VISIT COUNT (12 MO.) [address] [place] [address] TOTAL 4 NOTE: Visits indicate total known visits. ED/UCC VISIT TRACKING (12 MO.) 04/23/2025 09:30 [facility] TYPE: Emergency COMPLAINT: - MEDICATION REFILL 04/16/2025 12:49 [facility] OR TYPE: Emergency DIAGNOSES: - Essential (primary) hypertension - Other specified complication of vascular prosthetic devices, implants and grafts, initial encounter - Peripheral vascular disease, unspecified - RIGHT LEG PAIN 12/16/2024 15:28 [facility] TYPE: Emergency COMPLAINT: - ALTERED LOC 07/17/2024 05:37 [facility] TYPE: Emergency COMPLAINT: - FLANK PAIN DIAGNOSES: - Allergy status to other antibiotic agents - Allergy status to other drugs, medicaments and biological substances - Allergy status to penicillin - Allergy status to sulfonamides - Essential (primary) hypertension - Fall in (into) shower or empty bathtub, initial encounter - Other termite exterminator (current) drug therapy - Unspecified abdominal pain INPATIENT VISIT TRACKING (12 MO.) 12/16/2024 20:33 [facility] TYPE: Medical Surgical COMPLAINT: - UTI HYPOKALEMIA DIAGNOSES: - Acute kidney failure, unspecified - Acute kidney failure, unspecified - Alcohol use, unspecified, uncomplicated - Allergy status to other antibiotic agents - Allergy status to other antibiotic agents - Allergy status to other drugs, medicaments and biological substances - Allergy status to other drugs, medicaments and biological substances - Allergy status to sulfonamides - Allergy status to sulfonamides - Altered mental status, unspecified - Dysphagia, unspecified - Dysphagia, unspecified - Essential (primary) hypertension - Essential (primary) hypertension - Fall on same level, unspecified, initial encounter - Fall on same level, unspecified, initial encounter - Hypo-osmolality and hyponatremia - Hypo-osmolality and hyponatremia - Hypoglycemia, unspecified - Hypoglycemia, unspecified - Hypokalemia - Hypokalemia - Hypomagnesemia - Hypomagnesemia - correction (current) use of inhaled steroids - exterminator helper termite (current) use of inhaled steroids - correction (current) use of opiate analgesic - correction (current) use of opiate analgesic - Multiple fractures of ribs, left side, initial encounter for closed fracture - Multiple fractures of ribs, left side, initial encounter for closed fracture - Other chronic pain - Other chronic pain - Other disorders of phosphorus metabolism - Other disorders of phosphorus metabolism - Other termite exterminator (current) drug therapy - Other assisted (current) drug therapy - Other osteomyelitis, ankle and foot - Other specified disorders of bone density and structure, right ankle and foot - Other specified disorders of bone density and structure, right ankle and foot - Pressure ulcer of sacral region, unspecified stage - Pressure ulcer of sacral region, unspecified stage - Problems related to living alone - Problems related to living alone - Pure hypercholesterolemia, unspecified - Pure hypercholesterolemia, unspecified - Unspecified Escherichia coli [E. coli] as the cause of diseases classified elsewhere - Unspecified Escherichia coli [E. coli] as the cause of diseases classified elsewhere - Urinary tract infection, site not specified - Urinary tract infection, site not specified - Urinary tract infection, site not specified [email or web address]
[2025-04-23] MEDS ORDERED: OXYCODONE/ACETAMINOPHEN 1 TAB HOME.PACK PO ONE (10:15)
[2025-04-23 10:37] VITALS: BP 183/97
== END 2025-04-23 10:41 | disposition home or self-care (01) ==
LOC: ED 09:30
DX: M79.604 Pain in right leg (principal); I10 Essential (primary) hypertension; E78.00 Pure hypercholesterolemia, unspecified; Z79.899 Other long term (current) drug therapy; Z88.2 Allergy status to sulfonamides; Z88.0 Allergy status to penicillin; Z88.1 Allergy status to other antibiotic agents
CPT/HCPCS: 99283